=== PATIENT | female | born 1995 | race Two or more races ===

== ENCOUNTER 2020-06-06 15:35 | Inpatient (IN) | payer SELFPAY ==
[~2020-06-06] VITALS: Ht 157.5 cm; Wt 74.9 kg
[2020-06-06] MEDS ORDERED: IV RINGERS,LACTATED 1000ML 1,000 ML IV PRN (15:45)
[2020-06-06 16:24] LABS: BILIRUBIN,URINE NEGATIVE (NEG); CLARITY,URINE CLEAR; COLOR,URINE YELLOW; NITRITE,URINE NEGATIVE (NEG); PH,URINE 7.5 (<5.0-8.0); PROTEIN,URINE NEGATIVE (NEG-TRACE)
[2020-06-06 16:39] LABS: BACTERIA,URINE FEW /HPF (0-FEW); RBC,URINE 0 /HPF (0-2)
--- NOTE | 2020-06-06 19:29 | PDOC1 ---
SHAREPOINT MANAGER H&P Date of Admission: Date of Admission: Jun 06, 2020 at 19:24 History of Present Illness: EDC: 06/19/20 LMP: 10/29/19 24y @ 38.1 by 31wk u/s presents to L&D with ctxs. The pt was found to be 2 cm on presentation. After an hour the pt was found to be 3cm, so she was admitted. The pt has had only 3 and established care at 31wks. PMH: Migraines PSH: Denies Meds: PNV, Fe All: NKDA OBHx: 2 x TSVD SH: tob use, no EtOH FH: noncontributory Allergies: Coded Allergies: No Known Drug Allergies (Unverified , 06/06/20) Physical Exam: PE: GENERAL: No apparent distress. Alert and oriented. HEENT: Head normocephalic, atraumatic. NECK: Supple LUNGS: Clear to auscultation. HEART: RRR, S1, S2 present, pulses intact ABDOMEN: Soft, positive bowel sounds. EXTREMITIES: No cyanosis or edema. NEUROLOGIC: Normal speech, normal tone PSYCHIATRIC: Normal affect, normal mood. SKIN: No ulceration. FHT: 150s +acels/no decels/mLTV Blum: 1-2 min SVE: 4/50/-2 Labs: Laboratory Tests Test 06/06/20 16:14 Urine Collection Type Unknown Urine Color Yellow Urine Clarity Clear Urine pH 7.5 (<5.0-8.0) Urine Specific [place] 1.015 (1.000-1.030) Urine Protein Negative mg/dL (NEG-TRACE) Urine Glucose (UA) Negative mg/dL (NEG) Urine Ketones (Stick) Negative mg/dL (NEG) Urine Blood Negative (NEG) Urine Nitrite Negative (NEG) Urine Bilirubin Negative (NEG) Urine Urobilinogen Dipstick 1.0 mg/dL (0.2 mg/dL) Urine Leukocyte Esterase Small (NEG) Urine RBC 0 /HPF (0-2) Urine WBC 5-10 /HPF (0-4) Urine Squamous Epithelial Cells Mod /LPF Urine Bacteria Few /HPF (0-FEW) Urine Mucus Slight /LPF Assessment & Plan: A/P 24y @ 38.1 by 31wk u/s 1.) Active labor expectant management 2.) Migraines 3.) Anemia Hgb 10.5 4.) ASCUS/HPV pos pap colpo PP 5.) Fetus cat I FHT 6.) GBS neg FRANCY GARDUNO MD Jun 06, 2020 19:29
[2020-06-06] MEDS ORDERED: 0.9 % SODIUM CHLORIDE 10 ML DISP.SYRIN. IV PRN ×2 (19:30→22:45)
[2020-06-06] MEDS ORDERED: IV RINGERS,LACTATED 1000ML 1,000 ML IV SCH (19:30)
[2020-06-06] MEDS ORDERED: fentaNYL PF VIAL 100 MCG/2 ML VIAL IVP PRN (19:30)
[2020-06-06] MEDS ORDERED: ACETAMINOPHEN 325 MG TABLET. PO PRN ×2 (19:30→22:45)
[2020-06-06] MEDS ORDERED: OXYTOCIN 30 UNIT/500 ML PREMIX 500 ML IV PRN ×3 (19:30→22:45)
[2020-06-06] MEDS ORDERED: TERBUTALINE 1 MG/ML VIAL. SQ PRN (19:30)
[2020-06-06] MEDS ORDERED: BUTORPHANOL 2 MG/ML VIAL. IVP PRN (19:30)
[2020-06-06] MEDS ORDERED: ONDANSETRON PF 4 MG/2 ML VIAL. IVP PRN (19:30)
[2020-06-06] MEDS ORDERED: LIDOCAINE 1% PF 30 ML VIAL. INJ PRN (19:30)
[2020-06-06] MEDS ORDERED: CITRIC ACID/SODIUM CITRATE 30 ML SOLUTION. PO PRN (19:30)
[2020-06-06 20:16] LABS: BASO % 0 % (0-3); EOS # 0.1 x10^3/uL (0.0-0.7); EOS % 1 % (0-3); HEMOGLOBIN 9.3 g/dL (12.0-15.5); LYMPH # 2.8 x10^3/uL (1.0-4.8); LYMPH % 22 % (24-48); MEAN CORPUSCULAR HEMOGLOBIN 27 pg (25-35); MEAN CORPUSCULAR HGB CONC 33 g/dL (31-37); MEAN CORPUSCULAR VOLUME 81 fL (79-100); MONO # 0.7 x10^3/uL (0.0-1.1); MONO % 5 % (0-9); NEUT # 8.9 x10^3/uL (1.8-7.7); NEUT % 72 % (31-73); PLATELET COUNT 437 x10^3/uL (140-400); RED BLOOD COUNT 3.44 x10^6/uL (3.50-5.40); WHITE BLOOD COUNT 12.4 x10^3/uL (4.0-11.0)
[2020-06-06] MEDS ORDERED: ROPIVacaine 0.2% PF 10 ML VIAL. ONE ×2 (21:12→21:30)
[2020-06-06] MEDS ORDERED: ePHEDrine PF IN SALINE 50 MG/10 ML SYRINGE. IV PRN (21:15)
[2020-06-06] MEDS ORDERED: fentaNYL PF VIAL 100 MCG/2 ML VIAL EPID ONE (21:15)
[2020-06-06] MEDS ORDERED: IV RINGERS,LACTATED 1000ML 1,000 ML IV ONE (21:15)
[2020-06-06] MEDS ORDERED: ONDANSETRON PF 4 MG/2 ML VIAL. IV PRN (21:15)
[2020-06-06] MEDS ORDERED: L&D EPIDURAL SYRINGE 50 ML EPID PRN (21:15)
[2020-06-06] MEDS ORDERED: NALOXONE 0.4 MG/ML VIAL. IV PRN (21:15)
[2020-06-06] MEDS ORDERED: L&D EPIDURAL 50 ML SYRINGE. ONE (21:30)
--- NOTE | 2020-06-06 22:41 | PDOC ---
VAGINAL DELIVERY DATE DATE: 06/06/20 TIME: 22:41 TIME Patient delivered a viable female over intact perineum at 2227. Wt 6 lb 13 oz. Apgars 7/8. Placenta delivered spontaneously, intact with 3VC. No lacerations noted. Good hemostasis noted. 20 U of Pit given with IVF. EBL 200cc. WEIGHT Weight [ ] FRANCY GARDUNO MD Jun 06, 2020 22:41
[2020-06-06] MEDS ORDERED: oxyCODONE/APAP 5/325 1 TAB TABLET PO PRN (22:45)
[2020-06-06] MEDS ORDERED: TDaP (Adacel) per PROTOCOL. MC PRN (22:45)
[2020-06-06] MEDS ORDERED: MMR per PROTOCOL. MC PRN (22:45)
[2020-06-06] MEDS ORDERED: ZOLPIDEM 5 MG TABLET. PO PRN (22:45)
[2020-06-06] MEDS ORDERED: PHENYLEPH/MINERAL OIL/PETROLAT RECTAL OINTMENT TUBE. RC PRN (22:45)
[2020-06-06] MEDS ORDERED: SIMETHICONE 80 MG TAB.CHEW PO PRN (22:45)
[2020-06-06] MEDS ORDERED: BENZOCAINE 20% TOPICAL AEROSOL SPRAY 57GM CAN. TP PRN (22:45)
[2020-06-06] MEDS ORDERED: MAGNESIUM HYDROXIDE 2,400 MG/30 ML ORAL.SUSP. PO PRN (22:45)
[2020-06-06] MEDS ORDERED: DOCUSATE SODIUM 100 MG CAPSULE. PO PRN (22:45)
[2020-06-06] MEDS ORDERED: IBUPROFEN 400 MG TABLET. PO PRN (22:45)
[2020-06-06] MEDS ORDERED: diphenhydrAMINE HCL 25 MG CAPSULE PO PRN (22:45)
[2020-06-06] MEDS ORDERED: MAG HYDROX/ALUMINUM HYD/SIMETH 30 ML ORAL.SUSP PO PRN (22:45)
[2020-06-06] MEDS ORDERED: HYDROCORTISONE 1% TOPICAL OINTMENT 30GM TUBE. TP PRN (22:45)
[2020-06-07] VITALS (8 sets, daily range): BP systolic 96–122; BP diastolic 65–86
[2020-06-07] MEDS: IBUPROFEN 400 MG TABLET. PO PRN ×2 (00:58→20:11)
[2020-06-07] MEDS ORDERED: FERROUS SULFATE 325 MG TABLET. PO SCH (08:00)
--- NOTE | 2020-06-07 08:10 | NUR ---
used milk condenser phone # [phone] to go over mom and baby care
[2020-06-07 08:30] LABS: RED BLOOD COUNT 4.1 x10^6/uL (3.50-5.40); WHITE BLOOD COUNT 13.6 x10^3/uL (4.0-11.0)
--- NOTE | 2020-06-07 11:21 | PDOC ---
SUPPLY ANALYST PROGRESS NOTE Date of Service: DATE: 06/07/20 TIME: 11:20 Subjective: Pt with good pain control. Johnathon PO. Voiding. Minimal lochia Objective: Vital Signs: Vital Signs Date Time Temp Pulse Resp B/P (MAP) Pulse Ox O2 Delivery O2 Flow Rate FiO2 06/07/20 01:27 98.1 105 18 101/66 (78) 99 Room Air 98.1 Vital Signs Date Time Temp Pulse Resp B/P (MAP) Pulse Ox O2 Delivery O2 Flow Rate FiO2 06/07/20 08:00 98.1 67 18 122/86 (98) 97 Room Air 98.1 Labs: Laboratory Tests Test 06/06/20 16:14 06/06/20 19:45 06/06/20 20:00 06/07/20 08:05 Urine Collection Type Unknown Urine Color Yellow Urine Clarity Clear Urine pH 7.5 (<5.0-8.0) Urine Specific [place] 1.015 (1.000-1.030) Urine Protein Negative mg/dL (NEG-TRACE) Urine Glucose (UA) Negative mg/dL (NEG) Urine Ketones (Stick) Negative mg/dL (NEG) Urine Blood Negative (NEG) Urine Nitrite Negative (NEG) Urine Bilirubin Negative (NEG) Urine Urobilinogen Dipstick 1.0 mg/dL (0.2 mg/dL) Urine Leukocyte Esterase Small (NEG) Urine RBC 0 /HPF (0-2) Urine WBC 5-10 /HPF (0-4) Urine Squamous Epithelial Cells Mod /LPF Urine Bacteria Few /HPF (0-FEW) Urine Mucus Slight /LPF SARS-CoV-2 Antigen (Rapid) Negative (NEGATIVE) White Blood Count 12.4 x10^3/uL (4.0-11.0) H 13.6 x10^3/uL (4.0-11.0) H Red Blood Count 3.44 x10^6/uL (3.50-5.40) L 4.10 x10^6/uL (3.50-5.40) Hemoglobin 9.3 g/dL (12.0-15.5) L 11.0 g/dL (12.0-15.5) L Hematocrit 28.0 % (36.0-47.0) L 34.0 % (36.0-47.0) L Mean Corpuscular Volume 81 fL (79-100) 83 fL (79-100) Mean Corpuscular Hemoglobin 27 pg (25-35) 27 pg (25-35) Mean Corpuscular Hemoglobin Concent 33 g/dL (31-37) 32 g/dL (31-37) Red Cell Distribution Width 14.0 % (11.5-14.5) 14.0 % (11.5-14.5) Platelet Count 437 x10^3/uL (140-400) H 390 x10^3/uL (140-400) Neutrophils (%) (Auto) 72 % (31-73) Lymphocytes (%) (Auto) 22 % (24-48) L Monocytes (%) (Auto) 5 % (0-9) Eosinophils (%) (Auto) 1 % (0-3) Basophils (%) (Auto) 0 % (0-3) Neutrophils # (Auto) 8.9 x10^3/uL (1.8-7.7) H Lymphocytes # (Auto) 2.8 x10^3/uL (1.0-4.8) Monocytes # (Auto) 0.7 x10^3/uL (0.0-1.1) Eosinophils # (Auto) 0.1 x10^3/uL (0.0-0.7) Basophils # (Auto) 0.0 x10^3/uL (0.0-0.2) Treponema pallidum Antibody Nonreactive (Nonreactive) Laboratory Tests 06/06/20 20:00 06/07/20 08:05 Laboratory Tests 06/07/20 08:05 Physical Exam: GENERAL: No apparent distress. Alert and oriented. HEENT: Head normocephalic, atraumatic. NECK: Supple LUNGS: Clear to auscultation. HEART: RRR, S1, S2 present, pulses intact ABDOMEN: Soft, positive bowel sounds. EXTREMITIES: No cyanosis or edema. NEUROLOGIC: Normal speech, normal tone PSYCHIATRIC: Normal affect, normal mood. SKIN: No ulceration. FFNT below umb No C/C/E Assessment & Plan: A/P 24y PPD #1 s/p 1.) PP doing well 2.) Migraines 3.) Anemia Hgb 9.3 -> 11.0 4.) ASCUS/HPV pos pap colpo PP 5.) Cont PP care FRANCY GARDUNO MD Jun 07, 2020 11:21
[2020-06-07] MEDS ORDERED: DIPH,PERTUSS(ACELL),TET VAC/PF 0.5 ML SYRINGE. VAX IM ONE (16:15)
[2020-06-07] MEDS: PRENATAL MULTIVITAMIN TABLET. PO SCH (17:24)
[2020-06-08 05:00] VITALS: BP 103/68
[2020-06-08] MEDS: PRENATAL MULTIVITAMIN TABLET. PO SCH (09:36)
[2020-06-08 09:50] VITALS: BP 94/65
[2020-06-08] MEDS ORDERED: DOCU-109 PO (10:39)
[2020-06-08] MEDS ORDERED: IBUP-1060 PO (10:39)
--- NOTE | 2020-06-08 11:01 | PDOC ---
PROPERTY SITE MANAGER PROGRESS NOTE Date of Service: DATE: 06/08/20 TIME: 11:00 Subjective: Pt with good pain control. Johnathon PO. Voiding. Minimal lochia. Objective: Vital Signs: Vital Signs Date Time Temp Pulse Resp B/P (MAP) Pulse Ox O2 Delivery O2 Flow Rate FiO2 06/07/20 08:00 98.1 67 18 122/86 (98) 97 Room Air 98.1 Vital Signs Date Time Temp Pulse Resp B/P (MAP) Pulse Ox O2 Delivery O2 Flow Rate FiO2 06/08/20 09:50 98.1 64 20 94/65 (75) 99 98.1 06/08/20 05:00 Room Air Physical Exam: GENERAL: No apparent distress. Alert and oriented. HEENT: Head normocephalic, atraumatic. NECK: Supple LUNGS: Clear to auscultation. HEART: RRR, S1, S2 present, pulses intact ABDOMEN: Soft, positive bowel sounds. EXTREMITIES: No cyanosis or edema. NEUROLOGIC: Normal speech, normal tone PSYCHIATRIC: Normal affect, normal mood. SKIN: No ulceration. FFNT below umb no C/C/E Assessment & Plan: A/P 24y PPD #2 s/p 1.) PP doing well 2.) Migraines 3.) Anemia Hgb 9.3 -> 11.0 4.) ASCUS/HPV pos pap colpo PP 5.) D/c home FRANCY GARDUNO MD Jun 08, 2020 11:01
--- NOTE | 2020-06-08 11:41 | DS ---
DATE OF DISCHARGE: 06/08/2020 ADMISSION DIAGNOSES: 1. Intrauterine at 38 weeks and 1 day by a 31-week ultrasound. 2. Active labor. 3. Migraines. 4. Anemia. 5. Scant care. 6. Atypical squamous cells of undetermined significance, HPV positive Pap. 7. Group B Streptococcus negative. DISCHARGE DIAGNOSES: 1. Intrauterine at 38 weeks and 1 day by a 31-week ultrasound. 2. Active labor. 3. Migraines. 4. Anemia. 5. Scant care. 6. Atypical squamous cells of undetermined significance, HPV positive Pap. 7. Group B Streptococcus negative. PROCEDURE: Spontaneous vaginal delivery. BRIEF HOSPITAL COURSE: The patient is a 24-year-old 3, para 2-0-0-2, at 38 weeks and 1 day by 31-week ultrasound, who presented to Labor and Delivery with contractions. On initial presentation, the patient was found to be 2 cm dilated, which was similar to that of the office. After an hour's time, the patient progressed to 3 cm and was subsequently admitted. The patient had her membranes ruptured for augmentation and delivered later that night by vaginal delivery, see delivery note for full detail. By day #2, the patient was meeting all discharge criteria and was subsequently discharged home. Of note, her hemoglobin on admission was found to be 9.3 and after delivery was found to be 11.0.The patient was given TDAP and the Flu vaccine prior to discharge. DISCHARGE INSTRUCTIONS: The patient was told not to lift anything greater than 20 pounds, have pelvic rest for 6 weeks. CALL IF: The patient was to call if she had fevers, chills, nausea, vomiting, abdominal pain or any additional questions or concerns. DISCHARGE MEDICATIONS: The patient was given a prescription for Motrin 800 mg 30 pills and Colace 100 mg 30 pills. FOLLOWUP APPOINTMENTS: The patient is to follow up at [facility] on 07/23/2020 at 1:00 p.m. for a visit. RFANCY GARDUNO MD DR: CHAPARRO/wendy JOB#: [id number] / [id number] SY
== END 2020-06-08 13:45 | disposition home or self-care (01) | DRG 806 ==
LOC: 3 SO LND 15:35 → OBSVTOIN 19:24 → 3 NORTH 06-07 01:38
PROVIDERS: ADMIT Obstetrics & Gynecology; ATTEND Obstetrics & Gynecology
PROC: 10E0XZZ Delivery of Products of Conception, External Approach (ICD-10-PCS; principal; 2020-06-06)
DX: O99.02 Anemia complicating childbirth (principal); O99.354 Diseases of the nervous system complicating childbirth; Z37.0 Single live birth; G43.909 Migraine, unspecified, not intractable, without status migrainosus; O28.2 Abnormal cytological finding on antenatal screening of mother; Z20.822 Contact with and (suspected) exposure to COVID-19; Z3A.38 38 weeks gestation of pregnancy; Z72.0 Tobacco use
CPT/HCPCS: 36415; 81001; 85025; 85027; 86592; 86850; 86900; 86901; 87086; 87426; G0378; G0379; J2590; J2795; J3010; J7120; U0003

== ENCOUNTER 2021-04-08 16:00 | Day surgery (SDC) | payer MEDICAID ==
[~2021-04-08] VITALS: Ht 160 cm; Wt 72.7 kg
[~2021-04-08 16:00] MED LIST: DOCU-109 PO; IBUP-1060 PO
[2021-04-08 16:13] LABS: BASO # 0.1 x10^3/uL (0.0-0.2); BASO % 1 % (0-3); EOS # 0.1 x10^3/uL (0.0-0.7); EOS % 2 % (0-3); HEMATOCRIT 38.8 % (36.0-47.0); HEMOGLOBIN 12.9 g/dL (12.0-15.5); LYMPH # 1.7 x10^3/uL (1.0-4.8); LYMPH % 24 % (24-48); MEAN CORPUSCULAR HEMOGLOBIN 29 pg (25-35); MEAN CORPUSCULAR HGB CONC 33 g/dL (31-37); MEAN CORPUSCULAR VOLUME 86 fL (79-100); MONO # 0.4 x10^3/uL (0.0-1.1); MONO % 5 % (0-9); NEUT % 69 % (31-73); PLATELET COUNT 385 x10^3/uL (140-400); RED BLOOD COUNT 4.53 x10^6/uL (3.50-5.40); RED CELL DISTRIBUTION WIDTH 14.1 % (11.5-14.5); WHITE BLOOD COUNT 7.2 x10^3/uL (4.0-11.0)
[2021-04-08 16:18] LABS: CREATININE 0.7 mg/dL (0.6-1.0); GFR 101.1; POTASSIUM 4.2 mmol/L (3.5-5.1)
[2021-04-08 16:25] LABS: ALBUMIN 3.7 g/dL (3.4-5.0); ALBUMIN/GLOBULIN RATIO 0.7 (1.0-1.7); TOTAL BILIRUBIN 0.2 mg/dL (0.2-1.0); TOTAL PROTEIN 9.1 g/dL (6.4-8.2)
[2021-04-08 17:10] LABS: U PREG PATIENT NEGATIVE (NEG)
[2021-04-08 17:54] LABS: CLARITY,URINE BLOODY; COLOR,URINE RED
[2021-04-08 17:58] LABS: RBC,URINE TNTC /HPF (0-2)
[2021-04-08 17:59] LABS: BACTERIA,URINE MANY /HPF (0-FEW)
--- NOTE | 2021-04-08 18:29 | RAD ---
Ultrasound of the pelvis transabdominal and transvaginal imaging. HISTORY: Evaluate for retained products of conception post TAB Transabdominal ultrasound was performed. Uterus measured 8.5 x 3.7 x 5.7 cm. Endometrium was mildly p rominent measuring 1.1 cm. There is no free fluid in the pelvis. Right ovary was normal measuring 2.6 x 2.3 x 2.6 cm. There is flow in the right ovary with color imaging and Doppler. Left ovary and flow with color imaging and Doppler. Left ovary measured 1.8 x 1.9 x 1.7 cm. Transvaginal imaging was performed for further evaluation. Endometrium was mildly heterogeneous measu ring 1.1 cm in thickness. There is mild increased flow at the endometrium with color imaging. Mild re tained products of conception is possible. Lower uterine segment and cervix appear unremarkable. Ovaries are identified and normal in appearance on each side. There are small follicles in each ovary . IMPRESSION: 1. Heterogeneous mildly hyper vascular thickened endometrium, retained products of conception are pos sible. 2. Normal ovaries. Electronically signed by: Bobby Parikh MD (04/08/2021 6:26 PM) [facility]
--- NOTE | 2021-04-08 18:58 | PHYS DOC ---
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 Patient is a 25-year-old female who presents to the emergency department concerning complaining of vaginal bleeding for the past 4 days. Patient reports she had an at a local clinic on January 29, patient states she was giving pills, reported that she had bled for a few days and passed some tissues however missed her second appointment. Patient reports she started having low back pain with vaginal bleeding 4 days ago. Patient denies increased urinary frequency, urinary pressure, burning with urination, or dysuria. Patient denies vaginal discharge or STI concerns, patient denies rashes or lesions to her vagina. Patient denies chest pains, shortness of breath, dizziness or syncopal episodes. Patient reports this was her fourth , she has 3 babies. Patient denies other physical complaints or physical concerns. Review of Systems: Review of Systems: 14 body systems of review of systems have been reviewed. See HPI for pertinent positives and negative responses, otherwise all other systems are negative, nonpertinent or noncontributory. Constitutional: Negative except as outlined in HPI above. Skin: Negative except as outlined in HPI above. Eyes: Negative except as outlined in HPI above. HENT: Negative except as outlined in HPI above. Respiratory: Negative except as outlined in HPI above. Cardiovascular: Negative except as outlined in HPI above. GI: Negative except as outlined in HPI above. : Negative except as outlined in HPI above. Musculoskeletal: Negative except as outlined in HPI above. Integument: Negative except as outlined in HPI above. Neurologic: Negative except as outlined in HPI above. Endocrine: Negative except as outlined in HPI above. Lymphatic: Negative except as outlined in HPI above. Psychiatric: Negative except as outlined in HPI above. Heart Score: C/O Chest Pain: No Risk Factors: Risk Factors: DM, Current or recent (<one month) smoker, HTN, HLP, family history of CAD, obesity. Risk Scores: Score 0 - 3: 2.5% MACE over next 6 weeks - Discharge Home Score 4 - 6: 20.3% MACE over next 6 weeks - Admit for Clinical Observation Score 7 - 10: 72.7% MACE over next 6 weeks - Early Invasive Strategies Allergies: Allergies: Allergies Coded Allergies Type Severity Reaction Last Updated Verified No Known Drug Allergies 06/06/20 No Physical Exam: PE: Constitutional: Well developed, well nourished, no acute distress, non-toxic appearance. 25-year-old female in no apparent distress. HENT: Normocephalic, atraumatic. Eyes: Conjunctiva normal, no discharge. Neck: Normal range of motion, no stridor. Cardiovascular: No cyanosis appreciated, distal cap refill less than 2 seconds. Lungs & Thorax: Patient is in no respiratory distress, no audible adventitious lung sounds appreciated. Abdomen: Nontender, no abnormalities noted. No pain to palpation of the abdomen. Normal bowel sounds all 4 quadrants. Patient does have mild pain to the low pelvic area to palpation. Skin: Warm, dry, no erythema, no rash. Back: No tenderness, no deformities. Right lumbar area pain to palpation, no le ft-sided or right-sided CVA TTP. Extremities: No tenderness, no cyanosis, no clubbing, ROM intact, no edema. Neurologic: Alert and oriented X 3, normal motor function, normal sensory function, no focal deficits noted. Psychologic: Affect normal, judgement normal, mood normal. Current Patient Data: Labs: Laboratory Tests Test 04/08/21 16:00 04/08/21 16:50 White Blood Count 7.2 x10^3/uL (4.0-11.0) Red Blood Count 4.53 x10^6/uL (3.50-5.40) Hemoglobin 12.9 g/dL (12.0-15.5) Hematocrit 38.8 % (36.0-47.0) Mean Corpuscular Volume 86 fL (79-100) Mean Corpuscular Hemoglobin 29 pg (25-35) Mean Corpuscular Hemoglobin Concent 33 g/dL (31-37) Red Cell Distribution Width 14.1 % (11.5-14.5) Platelet Count 385 x10^3/uL (140-400) Neutrophils (%) (Auto) 69 % (31-73) Lymphocytes (%) (Auto) 24 % (24-48) Monocytes (%) (Auto) 5 % (0-9) Eosinophils (%) (Auto) 2 % (0-3) Basophils (%) (Auto) 1 % (0-3) Neutrophils # (Auto) 5.0 x10^3/uL (1.8-7.7) Lymphocytes # (Auto) 1.7 x10^3/uL (1.0-4.8) Monocytes # (Auto) 0.4 x10^3/uL (0.0-1.1) Eosinophils # (Auto) 0.1 x10^3/uL (0.0-0.7) Basophils # (Auto) 0.1 x10^3/uL (0.0-0.2) Maternal Serum HCG Beta Subunit 3 mIU/mL (0-5) Sodium Level 140 mmol/L (136-145) Potassium Level 4.2 mmol/L (3.5-5.1) Chloride Level 103 mmol/L (98-107) Carbon Dioxide Level 26 mmol/L (21-32) Anion Gap 11 (6-14) Blood Urea Nitrogen 9 mg/dL (7-20) Creatinine 0.7 mg/dL (0.6-1.0) Estimated GFR (Cockcroft-Gault) 101.1 BUN/Creatinine Ratio 13 (6-20) Glucose Level 127 mg/dL (70-99) H Calcium Level 9.0 mg/dL (8.5-10.1) Total Bilirubin 0.2 mg/dL (0.2-1.0) Aspartate Amino Transferase (AST) 17 U/L (15-37) Alanine Aminotransferase (ALT) 20 U/L (14-59) Alkaline Phosphatase 84 U/L (46-116) Total Protein 9.1 g/dL (6.4-8.2) H Albumin 3.7 g/dL (3.4-5.0) Albumin/Globulin Ratio 0.7 (1.0-1.7) L Urine Collection Type Unknown Urine Color Red Urine Clarity Bloody Urine pH (<5.0-8.0) Urine Specific [place] (1.000-1.030) Urine Protein mg/dL (NEG-TRACE) Urine Glucose (UA) mg/dL (NEG) Urine Ketones (Stick) mg/dL (NEG) Urine Blood (NEG) Urine Nitrite (NEG) Urine Bilirubin (NEG) Urine Urobilinogen Dipstick mg/dL (0.2 mg/dL) Urine Leukocyte Esterase (NEG) Urine RBC Tntc /HPF (0-2) Urine WBC 11-20 /HPF (0-4) Urine Squamous Epithelial Cells Mod /LPF Urine Bacteria Many /HPF (0-FEW) Urine Mucus Marked /LPF Urine Test Negative (NEG) Laboratory Tests 04/08/21 16:00 Laboratory Tests 04/08/21 16:00 Vital Signs: Vital Signs Date Time Temp Pulse Resp B/P (MAP) Pulse Ox O2 Delivery O2 Flow Rate FiO2 04/08/21 15:28 97.7 102 18 124/87 (99) 100 Room Air 97.7 EKG: EKG: [] Radiology/Procedures: Radiology/Procedures: STATUS: REG ER ORD. PHYSICIAN: FRANCY DURAN APRN REASON: Rule out retained products status post TAB PROCEDURE: PELVIS W/TV Ultrasound of the pelvis transabdominal and transvaginal imaging. HISTORY: Evaluate for retained products of conception post TAB Transabdominal ultrasound was performed. Uterus measured 8.5 x 3.7 x 5.7 cm. Endometrium was mildly prominent measuring 1.1 cm. There is no free fluid in the pelvis. Right ovary was normal measuring 2.6 x 2.3 x 2.6 cm. There is flow in the right ovary with color imaging and Doppler. Left ovary and flow with color imaging and Doppler. Left ovary measured 1.8 x 1.9 x 1.7 cm. Transvaginal imaging was performed for further evaluation. Endometrium was mildly heterogeneous measuring 1.1 cm in thickness. There is mild increased flow at the endometrium with color imaging. Mild retained products of conception is possible. Lower uterine segment and cervix appear unremarkable. Ovaries are identified and normal in appearance on each side. There are small follicles in each ovary. IMPRESSION: 1. Heterogeneous mildly hyper vascular thickened endometrium, retained products of conception are possible. 2. Normal ovaries. Electronically signed by: Bobby Parikh MD (04/08/2021 6:26 PM) [facility] Course & Med Decision Making: Course & Med Decision Making Pertinent Labs and Imaging studies reviewed. (See chart for details) 25-year-old female, vital signs reviewed, presents emerged from concerning vaginal bleeding for the past 4 days with low right back pain. Will order urinalysis assay, CBC, CMP, quantitative hCG, urinalysis assay, urine test, sonogram for rule out products of conception. Patient's urine has many bacteria, lab is unable to establish differential related to amount of red blood cells in urine, the patient is not per urine test, quantitative hCG equals 3, CBC and CMP are unremarkable. Sonogram concerning for retained products of conception. Called and discussed patient case and ED work-up with OB specialist Dr. Harding who recommends patient have rapid Covid testing done, states he will come to take her to the OR for a D&C and discharge considerations after procedure. Dr. Harding aware of many bacteria in urine, will consider antibiotic therapy after D&C procedure. Discussed OB specialist Dr. Harding's plans with patient who is amendable to ED planning/operating room planning. Patient reports last time eating or drinking at noon today. Dragon Disclaimer: Dragon Disclaimer: This electronic medical record was generated, in whole or in part, using a voice recognition dictation system. Departure Departure Impression: Primary Impression: Retained products of conception Disposition: ADMITTED INPATIENT (Patient admitted to the OR to Dr. Harding for D&C.) Admitting Physician: HIMS (Patient taken to the OR for D&C by OB specialist Dr. Harding) Referrals: NO PCP (PCP) FRANCY DURAN GEOPHYSICS SCIENTIST Apr 08, 2021 18:58
--- NOTE | 2021-04-08 19:33 | PDOC1 ---
GLASS CUTTER H&P Date of Admission: Date of Admission: History of Present Illness: The pt is a 25y who presented to the ER with VB. The pt was on Depo for the last 2yrs. When she stopped Depo, she still was not having a period. An u/s was performed revealing her to have a 6wk gestation about 2 months ago. She was txed with medication (a pill everyday for a month). She states that she never passed any POC. This Monday she began bleeding. The bleeding has gotten progressively worse. Today she began to have intense abd pain. In the ER she was found to have a nml WBC of 7.2 and Hgb of 12.9. An u/s was performed revealing the followin. Heterogeneous mildly hyper vascular thickened endometrium, retained products of conception are possible. 2. Normal ovaries. PMH: Denies PSH: Denies Meds: None All: NKDA OBHx: TSVD x3 Activity Manager: LMP 2yrs ago 12yo / regular SH: no tob, no EtOH FH: noncontributory Allergies: Coded Allergies: No Known Drug Allergies (Unverified , 06/06/20) Physical Exam: Vital Signs: Vital Signs Date Time Temp Pulse Resp B/P (MAP) Pulse Ox O2 Delivery O2 Flow Rate FiO2 04/08/21 15:28 97.7 102 18 124/87 (99) 100 Room Air 97.7 PE: GENERAL: No apparent distress. Alert and oriented. HEENT: Head normocephalic, atraumatic. NECK: Supple LUNGS: Clear to auscultation. HEART: RRR, S1, S2 present, pulses intact ABDOMEN: Soft, positive bowel sounds. EXTREMITIES: No cyanosis or edema. NEUROLOGIC: Normal speech, normal tone PSYCHIATRIC: Normal affect, normal mood. SKIN: No ulceration. Labs: Laboratory Tests Test 04/08/21 16:00 04/08/21 16:50 White Blood Count 7.2 x10^3/uL (4.0-11.0) Red Blood Count 4.53 x10^6/uL (3.50-5.40) Hemoglobin 12.9 g/dL (12.0-15.5) Hematocrit 38.8 % (36.0-47.0) Mean Corpuscular Volume 86 fL (79-100) Mean Corpuscular Hemoglobin 29 pg (25-35) Mean Corpuscular Hemoglobin Concent 33 g/dL (31-37) Red Cell Distribution Width 14.1 % (11.5-14.5) Platelet Count 385 x10^3/uL (140-400) Neutrophils (%) (Auto) 69 % (31-73) Lymphocytes (%) (Auto) 24 % (24-48) Monocytes (%) (Auto) 5 % (0-9) Eosinophils (%) (Auto) 2 % (0-3) Basophils (%) (Auto) 1 % (0-3) Neutrophils # (Auto) 5.0 x10^3/uL (1.8-7.7) Lymphocytes # (Auto) 1.7 x10^3/uL (1.0-4.8) Monocytes # (Auto) 0.4 x10^3/uL (0.0-1.1) Eosinophils # (Auto) 0.1 x10^3/uL (0.0-0.7) Basophils # (Auto) 0.1 x10^3/uL (0.0-0.2) Maternal Serum HCG Beta Subunit 3 mIU/mL (0-5) Sodium Level 140 mmol/L (136-145) Potassium Level 4.2 mmol/L (3.5-5.1) Chloride Level 103 mmol/L (98-107) Carbon Dioxide Level 26 mmol/L (21-32) Anion Gap 11 (6-14) Blood Urea Nitrogen 9 mg/dL (7-20) Creatinine 0.7 mg/dL (0.6-1.0) Estimated GFR (Cockcroft-Gault) 101.1 BUN/Creatinine Ratio 13 (6-20) Glucose Level 127 mg/dL (70-99) H Calcium Level 9.0 mg/dL (8.5-10.1) Total Bilirubin 0.2 mg/dL (0.2-1.0) Aspartate Amino Transferase (AST) 17 U/L (15-37) Alanine Aminotransferase (ALT) 20 U/L (14-59) Alkaline Phosphatase 84 U/L (46-116) Total Protein 9.1 g/dL (6.4-8.2) H Albumin 3.7 g/dL (3.4-5.0) Albumin/Globulin Ratio 0.7 (1.0-1.7) L Urine Collection Type Unknown Urine Color Red Urine Clarity Bloody Urine pH (<5.0-8.0) Urine Specific [place] (1.000-1.030) Urine Protein mg/dL (NEG-TRACE) Urine Glucose (UA) mg/dL (NEG) Urine Ketones (Stick) mg/dL (NEG) Urine Blood (NEG) Urine Nitrite (NEG) Urine Bilirubin (NEG) Urine Urobilinogen Dipstick mg/dL (0.2 mg/dL) Urine Leukocyte Esterase (NEG) Urine RBC Tntc /HPF (0-2) Urine WBC 11-20 /HPF (0-4) Urine Squamous Epithelial Cells Mod /LPF Urine Bacteria Many /HPF (0-FEW) Urine Mucus Marked /LPF Urine Test Negative (NEG) Laboratory Tests 04/08/21 16:00 Laboratory Tests 04/08/21 16:00 Laboratory Tests 04/08/21 16:00 Assessment & Plan: A/P 25y incomplete SAB 1.) SAB attempted medical management. Never passed POC now with retained tissue on u/s 2.) VB Hgb 12.9 3.) Blood type A pos 4.) Will move toward suction D&C FRANCY GARDUNO MD Apr 08, 2021 19:33
[2021-04-08] MEDS ORDERED: IV NORMAL SALINE 1000ML BAG 1,000 ML IV ONE (20:00)
[2021-04-08] MEDS ORDERED: fentaNYL PF VIAL 100 MCG/2 ML VIAL ONE (20:35)
[2021-04-08] MEDS ORDERED: IV RINGERS,LACTATED 1000ML 1,000 ML IV SCH (20:45)
[2021-04-08] MEDS ORDERED: HYDROmorphone 2 MG/ML INJ. IVP PRN (20:45)
[2021-04-08] MEDS ORDERED: PROCHLORPERAZINE 10 MG/2 ML VIAL. IVP PRN (20:45)
[2021-04-08] MEDS ORDERED: fentaNYL PF VIAL 100 MCG/2 ML VIAL IVP PRN ×2 (20:45)
[2021-04-08] MEDS ORDERED: MORPHINE SULFATE 2 MG/ML INJ. IVP PRN (20:45)
[2021-04-08] MEDS ORDERED: DOXYCYCLINE HYCLATE 100 MG in IV DEXTROSE 5% 100ML 100 ML IV SCH (20:45)
[2021-04-08] MEDS ORDERED: SILVER NITRATE STICK TP ONE (20:57)
[2021-04-08] MEDS ORDERED: SEVOFLURANE 31 TO 60 MINUTES. IH ONE (21:10)
[2021-04-08] MEDS ORDERED: DEXAMETHASONE SOD PHOS 4 MG/ML VIAL ONE (21:10)
[2021-04-08] MEDS ORDERED: ONDANSETRON PF 4 MG/2 ML VIAL. ONE (21:10)
[2021-04-08] MEDS ORDERED: LIDOCAINE 2% PF 5 ML VIAL. ONE (21:10)
[2021-04-08] MEDS ORDERED: PROPOFOL 10 MG/ML (20ML) VIAL. IV ONE (21:10)
[2021-04-08] MEDS ORDERED: OXYC1TAB15 PO (21:12)
[2021-04-08] MEDS ORDERED: IBUP-1060 PO (21:12)
[2021-04-08] MEDS ORDERED: NITR100C62 PO (21:12)
--- NOTE | 2021-04-08 21:19 | PDOC4 ---
OPERATIVE NOTE: PreOp Dx: 1.) SAB failed medical management, 2.) VB PostOp Dx: same Procedure: Suction D&C Surgeon: Seth Garduno Anesthesia: LMA EBL: 50 cc Fluids: 1000 cc UOP: 5 cc Specimen: POC Complications: None FRANCY GARDUNO MD Apr 08, 2021 21:19
--- NOTE | 2021-04-08 21:33 | OP ---
DATE OF SURGERY: 04/08/2021 PREOPERATIVE DIAGNOSES: 1. Spontaneous , failed medical management. 2. Vaginal bleeding. POSTOPERATIVE DIAGNOSES: 1. Spontaneous , failed medical management. 2. Vaginal bleeding. PROCEDURE: Suction D and C. SURGEON: Yraed Harding MD ANESTHESIA: LMA. ESTIMATED BLOOD LOSS: 50 mL FLUIDS: 1000 mL URINE OUTPUT: 5 mL SPECIMENS: Products of conception. COMPLICATIONS: None. DESCRIPTION OF PROCEDURE: The patient was taken to the operating room where LMA was placed without difficulty. The patient was prepped and draped in normal sterile fashion. The speculum was placed in the patient's vagina to visualize the cervix. The anterior lip of the cervix was then grasped with a single tooth tenaculum. The uterus was then sounded to approximately 8 cm. The cervix was sufficiently dilated to allow for a 9 cm curved curette to be placed. The curette was then advanced to the fundus and suction was then activated. The curette was then rotated until all products of conception were cleared. This occurred with only a couple of passes. At that point, a sharp curetting was performed until gritty texture was felt in all 4 quadrants. At that point, minimal bleeding was noted. An additional pass of the suction curette was then performed one more time with no tissue and minimal blood. At that point, the procedure was terminated. The tenaculum was then removed. There was bleeding at the tenaculum sites. Initially, a ring forceps was placed on the bleeding portion of the tenaculum site to try to tamponade the bleeding. It was held for a minute. Once the ring was removed, the bleeding continued. At that point, silver nitrate was attempted to kind of cauterize the bleeding. The bleeding continued. At that point, a 3-0 Vicryl was placed with a [id number] manner. Hemostasis was then achieved. At that point, good hemostasis was noted. The patient was then taken to recovery room in stable condition. A 200 mg of doxycycline were given during the procedure. LYNDSAY DR: Lauren TID: [id number]
[2021-04-08 22:11] VITALS: BP 111/89
[2021-04-08] MEDS ORDERED: IBUPROFEN 400 MG TABLET. PO ONE (22:15)
--- NOTE | 2021-04-13 18:16 | PATHOLOGY ---
[facility] Accession Number: [id number] . 01 Material submitted: . product of conception - REMAINING PRODUCTS OF CONCEPTION . 01 Clinical history: . DILATION AND CURETTAGE . 02 Diagnosis: Uterine contents, suction D and C: - Retained products of conception, comprised of degenerating and necrotic immature chorionic villi with associated intervillous fibrin deposition and hemorrhage, decidual tissue showing necrosis and acute inflammation, and segments of placental implantation site and endometrium showing chronic inflammation. ([facility]; 04/13/2021) [facility] 04/13/2021 1510 Local . 02 Electronically signed: . Cash Antunez MD, Pathologist NPI- [id number] . 01 Gross description: . The specimen is received in formalin, labeled "Smiley Hong, Remaining Products of Conception". Received are multiple segments of pink-andrews to pink-riley soft tissue admixed with blood coagulum and spongiform tissue measuring 3.4 x 3.4 x 0.4 cm in aggregate dimensions. or embryonic tissue is not present. Vesicular structures are not present. The specimen is submitted entirely in cassettes A1 to A4.([facility]; 04/12/2021) [facility] 04/13/2021 1508 Local . 02 Pathologist provided ICD-10: O73.1, N71.1 . 02 CPT . 154438 Specimen Comment: A courtesy copy of this report has been sent to [phone] Specimen Comment: Report sent to Performed at: 01 [facility] [address], [place], [place] [id number] MD Adam Deleon MD Phone: [phone] Performed at: 02 [facility] [address], [place] [id number] MD Cash Antunez MD Phone: [phone]
== END 2021-04-08 20:20 | disposition home or self-care (01) ==
LOC: SDC 16:00 → SURG 16:50 → SDC 20:20 → SURG 20:20 → ER 20:20
PROVIDERS: ATTEND Nurse Practitioner Family
DX: O73.1 Retained portions of placenta and membranes, without hemorrhage (principal); O03.9 Complete or unspecified spontaneous abortion without complication; N93.9 Abnormal uterine and vaginal bleeding, unspecified; Z79.899 Other long term (current) drug therapy
CPT/HCPCS: 36415; 59812; 76830; 76856; 80053; 81001; 81025; 84702; 85025; 87077; 87086; 87186; 87426; 87491; 87591; 88305; 96361; 96365; 99285; A4930; J1100; J2405; J2704; J3490; J7030; J7060; J7120; A4223; A4322; J3010